=== PATIENT | female | born 1995 | race Two or more races ===

== ENCOUNTER 2020-07-26 17:35 | Emergency (ER) | payer OTHER ==
[~2020-07-26] VITALS: Ht 152.4 cm; Wt 63.6 kg
[2020-07-26 18:05] VITALS: BP 130/97
--- NOTE | 2020-07-26 18:12 | PHYS DOC ---
General Adult EDM: Chief Complaint: EARACHE/EAR PAIN HPI: HPI: ".. 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 ear pain with sore throat x 2 days. Patient has had recent travel to [place]. Patient has had 1 Covid vaccination and due for the final this next week. No history of specific ill contacts. Patient normally follows with [facility]. Patient no history of immunosuppression. Up-to-date with other vaccinations. Patient is normally healthy. 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 Review of Systems: Review of Systems: Constitutional: Denies fever or chills Eyes: Denies change in visual acuity HENT: Complains of nasal congestion, right ear pain and sore throat Respiratory: Denies cough or shortness of breath Cardiovascular: Denies chest pain or edema GI: Denies abdominal pain, nausea, vomiting, bloody stools or diarrhea : Denies dysuria Musculoskeletal: Denies back pain or joint pain Integument: Denies rash Neurologic: Denies headache, focal weakness or sensory changes Endocrine: Denies polyuria or polydipsia Lymphatic: Denies swollen glands Psychiatric: Denies depression or anxiety Family History: Family History: Noncontributory to presentation Current Medications: Current Meds: See nursing for home meds Allergies: Allergies: No known drug allergies Physical Exam: PE: Constitutional: Well developed, well nourished, no acute distress, non-toxic appearance. [] HENT: Normocephalic, atraumatic, bilateral external ears normal, oropharynx moist, mild injection of pharynx, no oral exudates, nose normal. Does have a small amount of fluid behind right TM. Eyes: PERRLA, EOMI, conjunctiva normal, no discharge. [] Neck: Normal range of motion, no tenderness, supple, no stridor. No adenopathy Cardiovascular:Heart rate regular rhythm, no murmur [] Lungs & Thorax: Bilateral breath sounds clear to auscultation [] Abdomen: Bowel sounds normal, soft, no tenderness, no masses, no pulsatile masses. [] Skin: Warm, dry, no erythema, no rash. [] Back: No tenderness, no CVA tenderness. [] Extremities: No tenderness, no cyanosis, no clubbing, ROM intact, no edema. [] Neurologic: Alert and oriented X 3, normal motor function, normal sensory function, no focal deficits noted. [] Psychologic: Affect anxious, , judgement normal, mood normal. [] EKG: EKG: [] Radiology/Procedures: Radiology/Procedures: [] Heart Score: C/O Chest Pain: N/A Risk Factors: Risk Factors: DM, Current or recent (<one month) smoker, HTN, HLP, family history of CAD, obesity. Risk Scores: Score 0 - 3: 2.5% MACE over next 6 weeks - Discharge Home Score 4 - 6: 20.3% MACE over next 6 weeks - Admit for Clinical Observation Score 7 - 10: 72.7% MACE over next 6 weeks - Early Invasive Strategies Course & Med Decision Making: Course & Med Decision Making Pertinent Labs and Imaging studies reviewed. (See chart for details) Patient gargle Listerine 4 times a day. Patient take Tylenol and ibuprofen as needed for discomfort. Patient take [id number] Benadryl 25 to 50 mg 4 times a day for nasal congestion and drainage and right TM fluid. Patient follow-up pending cultures. Suspect this is a viral pharyngitis. Patient follow-up with [facility]. Patient return if any concerns. Impression; 1. Viral pharyngitis [] Opal Disclaimer: Opal Disclaimer: This electronic medical record was generated, in whole or in part, using a voice recognition dictation system. Departure Departure: Referrals: PCP,NO (PCP) ARTI GUTIERREZ MD July 26, 2020 18:12
[2020-07-26] MEDS ORDERED: diphenhydrAMINE HCL 25 MG CAPSULE PO ONE (18:45)
[2020-07-26] MEDS ORDERED: predniSONE 10 MG TABLET PO ONE (18:45)
[2020-07-26] MEDS ORDERED: HYDROcodon/IBUPROFEN 7.5/200MG 1 TAB TABLET PO ONE (18:45)
== END 2020-07-26 20:28 | disposition home or self-care (01) ==
LOC: ER 17:35
DX: J02.8 Acute pharyngitis due to other specified organisms (principal); H92.01 Otalgia, right ear
CPT/HCPCS: 87070; 87880; 99284; J7512; Q0163

== ENCOUNTER 2021-01-11 03:37 | Emergency (ER) | payer OTHER ==
[~2021-01-11] VITALS: Ht 152.4 cm; Wt 65.6 kg
--- NOTE | 2021-01-11 03:46 | PHYS DOC ---
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 Pt. reports chest pain is central and some Lt shoulder radiation. . Pain does have pleurisy components. Patient denies previous cardiac problems. No history of DVTs or pulmonary embolisms. Is on control with IUD. No history of trauma. No history of fever or chills. No significant ill contacts. There is family history of early cardiac MA age 38 with father who is a diabetic. Patient normally follows with with Monty for care. Patient just returned from [facility] in [place] 2 weeks ago. No significant ill contacts while there. Does use IUD Mirena =5 yrs. . COVID vaccination x 2- Moderna.- July last vaccination. (ARTI GUTIERREZ MD) Review of Systems: Review of Systems: Constitutional: Denies fever or chills Eyes: Denies change in visual acuity HENT: Denies nasal congestion or sore throat Respiratory: Denies cough or shortness of breath Cardiovascular: Complains of chest pain GI: Denies abdominal pain, nausea, vomiting, bloody stools or diarrhea : Denies dysuria Musculoskeletal: Denies back pain or joint pain Integument: Denies rash Neurologic: Denies headache, focal weakness or sensory changes Endocrine: Denies polyuria or polydipsia Lymphatic: Denies swollen glands Psychiatric: Denies depression or anxiety (ARTI GUTIERREZ MD) Family History: Family History: Father diabetic and had MA at age 38 (ARTI GUTIERREZ MD) Current Medications: Current Meds: See nursing for home meds (ARTI GUTIERREZ MD) Allergies: Allergies: Allergies Coded Allergies Type Severity Reaction Last Updated Verified No Known Drug Allergies 07/26/20 No (ARTI GUTIERREZ MD) Physical Exam: PE: Constitutional: Well developed, well nourished, moderate acute distress, non- toxic appearance. [] HENT: Normocephalic, atraumatic, bilateral external ears normal, oropharynx moist, no oral exudates, nose normal. [] Eyes: PERRLA, EOMI, conjunctiva normal, no discharge. [] Neck: Normal range of motion, no tenderness, supple, no stridor. [] Cardiovascular:Heart rate regular rhythm, no murmur [] bedside monitor shows a sinus rhythm.- in 70's. Lungs & Thorax: Bilateral breath sounds equal apex on auscultation [] (scar on upper right breast- old cut on barbwire). Abdomen: Bowel sounds normal, soft, no tenderness, no masses, no pulsatile masses. [] Skin: Warm, dry, no erythema, no rash. [] Back: No tenderness, no CVA tenderness. [] Extremities: No tenderness, no cyanosis, no clubbing, ROM intact, no edema. No cording appreciated Neurologic: Alert and oriented X 3, normal motor function, normal sensory function, no focal deficits noted. [] Psychologic: Affect anxious, judgement normal, mood normal. [] (ARTI GUTIERREZ MD) EKG: EKG: [] (ARTI GUTIERREZ MD) EKG: EKG ordered and interpreted by myself at 0640 hrs. sinus bradycardia 46 bpm, unremarkable intervals, no axis deviation, no STEMI (QUINTEN LEE DO) Radiology/Procedures: Radiology/Procedures: My interpretation EKG shows sinus rhythm at 78 bpm. No acute morphology. Time of EKG is 348 hours [] (ARTI GUTIERREZ MD) Heart Score: C/O Chest Pain: Yes HEART Score for Chest Pain: HEART Score for Chest Pain Response (Comments) Value History Slighlty/Non-Suspicious 0 ECG Normal 0 Age < 45 0 Risk Factors 1 or 2 Risk Factors 1 Troponin < Normal Limit 0 Total 1 Risk Factors: Risk Factors: DM, Current or recent (<one month) smoker, HTN, HLP, family history of CAD, obesity. Risk Scores: Score 0 - 3: 2.5% MACE over next 6 weeks - Discharge Home Score 4 - 6: 20.3% MACE over next 6 weeks - Admit for Clinical Observation Score 7 - 10: 72.7% MACE over next 6 weeks - Early Invasive Strategies (ARTI GUTIERREZ MD) C/O Chest Pain: Yes HEART Score for Chest Pain: HEART Score for Chest Pain Response (Comments) Value History Slighlty/Non-Suspicious 0 ECG Normal 0 Age < 45 0 Risk Factors 1 or 2 Risk Factors 1 Troponin < Normal Limit 0 Total 1 (QUINTEN LEE DO) Course & Med Decision Making: Course & Med Decision Making Pertinent Labs and Imaging studies reviewed. (See chart for details) Encourage patient to follow-up with primary care. Encourage patient consider outpatient stress testing. Patient to take a daily aspirin. Patient take Tylenol and ibuprofen for discomfort. Push fluids. Push fruit juices. Return if any concerns. Endorsed to Dr. Lee at shift change he will make final disposition. With expected patient to be relatively low risk for acute cardiac event. Impression: 1. Pleuritic chest pain/ Chest wall pain 2. Mild hypokalemia potassium 3.1 3. Hx COVID vaccinationx2- Moderna [] (ARTI GUTIERREZ MD) Course & Med Decision Making Signout. I reviewed entirety of ER work-up and repeated certain aspects of history and physical exam with patient Reviewed heart score, patient asymptomatic at time of my evaluation. Little indication for further diagnostic work-up. 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 Close follow-up with outpatient budget consultant advised for continuity of care Strict return precautions discussed and understood by patient, all questions and concerns addressed prior to departure (QUINTEN LEE DO) Dragon Disclaimer: Dragon Disclaimer: This electronic medical record was generated, in whole or in part, using a voice recognition dictation system. (ARTI GUTIERREZ MD) Departure Departure: Impression: Primary Impression: Chest pain, unspecified Disposition: HOME / SELF CARE / HOMELESS Condition: STABLE Referrals: PCP,ROBERT (PCP) GRIS UP MD Additional Instructions: You were seen for chest pain. Your workup did not show any acute abnormalities today, but does not indicate that you do not have underlying cardiovascular disease. You do need to follow up with your primary doctor and potentially a budget consultant for further evaluation and treatment. You should return to the ED if you develop worsening chest pain, shortness of breath, fever, abnormal sweating, leg swelling, or any other new or concerning symptoms. Dragon Disclaimer This chart was dictated in whole or in part using Voice Recognition software in a busy, high-work load, and often noisy Emergency Department environment. It may contain unintended and wholly unrecognized errors or omissions. (ARTI GUTIERREZ MD) Dragon Disclaimer This chart was dictated in whole or in part using Voice Recognition software in a busy, high-work load, and often noisy Emergency Department environment. It may contain unintended and wholly unrecognized errors or omissions. (ARTI GUTIERREZ MD) ARTI GUTIERREZ MD Jan 11, 2021 03:46 QUINTEN LEE DO Jan 11, 2021 06:59
[2021-01-11] MEDS ORDERED: KETOROLAC 30 MG/ML VIAL. IVP ONE (04:15)
[2021-01-11] MEDS ORDERED: IV RINGERS SOLUTION,LACTATED 1,000 ML IV SCH (04:15)
[2021-01-11] MEDS ORDERED: ASPIRIN CHEWABLE 81 MG TABLET. PO ONE (04:15)
[2021-01-11 04:46] LABS: CALCIUM 8.8 mg/dL (8.5-10.1); CREATININE 0.5 mg/dL (0.6-1.0); GFR 152.9; POTASSIUM 3.1 mmol/L (3.5-5.1)
[2021-01-11 04:47] LABS: BASO % 0 % (0-3); EOS # 0.1 x10^3/uL (0.0-0.7); EOS % 1 % (0-3); HEMATOCRIT 39.8 % (36.0-47.0); HEMOGLOBIN 13.3 g/dL (12.0-15.5); LYMPH # 3.7 x10^3/uL (1.0-4.8); LYMPH % 35 % (24-48); MEAN CORPUSCULAR HEMOGLOBIN 30 pg (25-35); MEAN CORPUSCULAR HGB CONC 34 g/dL (31-37); MEAN CORPUSCULAR VOLUME 91 fL (79-100); MONO # 0.6 x10^3/uL (0.0-1.1); MONO % 5 % (0-9); NEUT # 6.1 x10^3uL (1.8-7.7); NEUT % 59 % (31-73); PLATELET COUNT 252 x10^3/uL (140-400); RED BLOOD COUNT 4.39 x10^6/uL (3.50-5.40); RED CELL DISTRIBUTION WIDTH 13.6 % (11.5-14.5); WHITE BLOOD COUNT 10.4 x10^3/uL (4.0-11.0)
[2021-01-11 04:58] LABS: ALBUMIN 3.6 g/dL (3.4-5.0); DIRECT BILIRUBIN 0.1 mg/dL (0.0-0.2); TOTAL BILIRUBIN 0.4 mg/dL (0.2-1.0); TOTAL PROTEIN 7.7 g/dL (6.4-8.2)
--- NOTE | 2021-01-11 04:59 | RAD ---
EXAMINATION: XR CHEST 2V CLINICAL HISTORY: Chest pain EXAM DATE/TIME: 01/11/2021 4:24 AM COMPARISON: None FINDINGS: Lines, Tubes, and Devices: None. Cardiomediastinal Silhouette: Within normal limits. Lungs and Pleura: No evidence of focal airspace consolidation or pleural effusion. Pulmonary vasculat ure unremarkable. Bones and Soft Tissues: No acute osseous abnormality. IMPRESSION: No evidence of acute cardiopulmonary abnormality. Electronically signed by: Diogo Trevino DO (01/11/2021 4:56 AM) RAFY
--- NOTE | 2021-01-11 06:22 | EKG ---
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
[2021-01-11 07:30] VITALS: BP 94/55
[2021-01-11 10:23] LABS: THYROID STIM HORMONE (TSH) 0.978 uIU/mL (0.358-3.740)
--- NOTE | 2021-01-11 16:11 | EKG ---
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
== END 2021-01-11 07:30 | disposition home or self-care (01) ==
LOC: ER 03:37
DX: R07.89 Other chest pain (principal); E87.6 Hypokalemia
CPT/HCPCS: 36415; 71046; 80048; 80061; 80076; 82550; 83690; 83735; 83880; 84443; 84484; 85025; 85379; 85610; 85730; 93005; 96361; 96374; 99285; J1885; J7120

== ENCOUNTER 2021-07-20 15:04 | Emergency (ER) | payer OTHER ==
--- NOTE | 2021-07-20 15:39 | RAD ---
XR CHEST 1V INDICATION: Reason: dizzy / Spl. Instructions: / History: . COMPARISON STUDY: None. FINDINGS: Lungs: Normal lung volume. No pulmonary mass or consolidation. The tracheobronchial tree and hilar st ructures are normal. Pleura: No pleural effusion or pneumothorax. Heart and Mediastinum: The cardiomediastinal silhouette is normal. The great vessels of the thorax ar e normal. Bones and Soft Tissues: The bones and soft tissues are within normal limits. IMPRESSION: No acute cardiopulmonary process. Electronically signed by: Tyler Hurt MD (07/20/2021 3:37 PM) [id number]
--- NOTE | 2021-07-20 15:42 | PHYS DOC ---
Past History Past Medical History: No Pertinent History Past Surgical History: No Surgical History Alcohol Use: None General Adult EDM: Chief Complaint: CHEST PAIN HPI: HPI: Patient is a 25-year-old female presents with chest pain and dizziness. Patient states that she feels lightheaded with standing. She has not passed out. She has not had any palpitations. The pain is a constant ache which does seem to be worse with deep breaths. No fever. No cough. She does feel somewhat short of breath with exertion. No history of asthma. Review of Systems: Review of Systems: Constitutional: Denies fever Eyes: Denies change in visual acuity or eye pain HENT: Denies sore throat Respiratory: Denies shortness of breath at rest Cardiovascular: Reports chest pain GI: Denies abd pain : Denies dysuria Musculoskeletal: Denies back or extremity injury Integument: Denies rash or skin lesions Neurologic: Denies headache, focal weakness or sensory changes All other systems were reviewed and found to be within normal limits, except as documented in this note. Current Medications: Current Meds: Current Medications Medications (Trade) Dose Ordered Sig/Abhay Start Time Stop Time Status Last Admin Dose Admin Ketorolac Tromethamine (Toradol 30mg Vial) 30 mg 1X ONCE 07/20/21 15:30 07/20/21 15:31 DC Meclizine HCl (Antivert) 25 mg 1X ONCE 07/20/21 15:30 07/20/21 15:31 DC Sodium Chloride 1,000 ml @ 1,000 mls/hr 1X ONCE 07/20/21 15:30 07/20/21 16:29 Allergies: Allergies: Allergies Coded Allergies Type Severity Reaction Last Updated Verified No Known Drug Allergies 07/26/20 No Physical Exam: PE: Constitutional: Well developed, well nourished, no acute distress, non-toxic appearance. HENT: Normocephalic, atraumatic, bilateral external ears normal, mucosa moist, nose normal. Eyes: EOMI, conjunctiva normal, no discharge. Neck: Normal range of motion, supple, no stridor, no meningeal signs. Cardiovascular: Regular rate and rhythm Lungs & Thorax: Bilateral breath sounds clear to auscultation Abdomen: Soft, no tenderness or obvious masses Skin: Warm, dry, no erythema, no rash. Extremities: No tenderness, no cyanosis, no clubbing, ROM intact, no edema. Neurologic: Alert and oriented, normal motor function, normal sensory function, no focal deficits noted. Psychologic: Affect normal, judgement normal, mood normal. EKG: EKG: [] Twelve-lead EKG demonstrates a sinus rhythm with rate of 72. NH, QRS and QT corrected intervals within normal limits. No ST segment elevation or depression. Radiology/Procedures: Radiology/Procedures: [] Impressions: Chest x-ray is negative for any acute process Heart Score: C/O Chest Pain: Yes HEART Score for Chest Pain: HEART Score for Chest Pain Response (Comments) Value History Slighlty/Non-Suspicious 0 ECG Normal 0 Age < 45 0 Risk Factors No Risk Factors 0 Troponin < Normal Limit 0 Total 0 Risk Factors: Risk Factors: DM, Current or recent (<one month) smoker, HTN, HLP, family history of CAD, obesity. Risk Scores: Score 0 - 3: 2.5% MACE over next 6 weeks - Discharge Home Score 4 - 6: 20.3% MACE over next 6 weeks - Admit for Clinical Observation Score 7 - 10: 72.7% MACE over next 6 weeks - Early Invasive Strategies Course & Med Decision Making: Course & Med Decision Making Pertinent Labs and Imaging studies reviewed. (See chart for details) [] This 25-year-old female with chest pain and dizziness. Her work-up was negative. She was given meclizine and Toradol with a liter of fluid and symptoms have resolved. We will give her prescriptions for the above medications, she is stable for discharge at this time. Dragon Disclaimer: Opal Disclaimer: This electronic medical record was generated, in whole or in part, using a voice recognition dictation system. Departure Departure: Impression: Primary Impression: Atypical chest pain Additional Impression: Dizziness Disposition: HOME / SELF CARE / HOMELESS Condition: STABLE Referrals: KEILY HUERTA BONE CHAR KILN OPERATOR-BC (PCP) Patient Instructions: Chest Pain (Nonspecific), Dizziness Scripts Meclizine Hcl (MECLIZINE HCL) 25 Mg Tablet 1 TAB PO TID for dizziness, #20 TAB Prov: HAO ALCALA MD 07/20/21 Ketorolac Tromethamine (KETOROLAC TROMETHAMINE) 10 Mg Tablet 1 TAB PO PRN Q6HRS for pain, #10 TAB Prov: HAO ALCALA MD 07/20/21 HAO ALCALA MD Jul 20, 2021 15:42
[2021-07-20] MEDS: MECLIZINE 12.5 MG TABLET. PO ONE (15:57)
[2021-07-20] MEDS: KETOROLAC 30 MG/ML VIAL. IVP ONE (15:58)
[2021-07-20] MEDS: IV NORMAL SALINE 1,000ML 1,000 ML IV ONE (15:58)
[2021-07-20 16:26] LABS: BASO % 0 % (0-3); EOS # 0.1 x10^3/uL (0.0-0.7); EOS % 1 % (0-3); HEMATOCRIT 38.9 % (36.0-47.0); HEMOGLOBIN 12.9 g/dL (12.0-15.5); LYMPH # 3.9 x10^3/uL (1.0-4.8); LYMPH % 41 % (24-48); MEAN CORPUSCULAR HEMOGLOBIN 31 pg (25-35); MEAN CORPUSCULAR HGB CONC 33 g/dL (31-37); MEAN CORPUSCULAR VOLUME 92 fL (79-100); MONO # 0.7 x10^3/uL (0.0-1.1); MONO % 7 % (0-9); NEUT # 4.8 x10^3uL (1.8-7.7); NEUT % 50 % (31-73); PLATELET COUNT 212 x10^3/uL (140-400); RED BLOOD COUNT 4.24 x10^6/uL (3.50-5.40); RED CELL DISTRIBUTION WIDTH 13.3 % (11.5-14.5); WHITE BLOOD COUNT 9.5 x10^3/uL (4.0-11.0)
[2021-07-20 16:39] LABS: CALCIUM 8.6 mg/dL (8.5-10.1); CREATININE 0.6 mg/dL (0.6-1.0); GFR 123.9; POTASSIUM 3.7 mmol/L (3.5-5.1)
[2021-07-20 16:46] LABS: ALBUMIN 3.5 g/dL (3.4-5.0); MAGNESIUM 1.8 mg/dL (1.8-2.4); TOTAL BILIRUBIN 0.2 mg/dL (0.2-1.0)
[2021-07-20 17:17] LABS: INFLUENZA A PATIENT NEGATIVE (NEGATIVE); INFLUENZA B PATIENT NEGATIVE (NEGATIVE)
[2021-07-20] MEDS ORDERED: MECL-75 PO (17:57)
[2021-07-20] MEDS ORDERED: KETO10TA PO (17:57)
[2021-07-20 18:36] LABS: U PREG PATIENT NEGATIVE (NEG)
[2021-07-20 18:59] LABS: CLARITY,URINE CLEAR; COLOR,URINE YELLOW; GLUCOSE,URINE NEG (NEG); NITRITE,URINE NEG (NEG); UROBILINOGEN,URINE 0.2 mg/dL (0.2 mg/dL)
[2021-07-20 19:00] LABS: BACTERIA,URINE MOD /HPF (0-FEW); SQUAMOUS EPITHELIAL CELL,UR MOD /LPF; WBC,URINE 20-40 /HPF (0-4)
--- NOTE | 2021-07-20 21:49 | EKG ---
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
== END 2021-07-20 18:08 | disposition home or self-care (01) ==
LOC: ER 15:04
DX: R07.89 Other chest pain (principal); R42 Dizziness and giddiness; R06.02 Shortness of breath; Z20.822 Contact with and (suspected) exposure to COVID-19
CPT/HCPCS: 36415; 71045; 80053; 81001; 81025; 83690; 83735; 84484; 85025; 87428; 93005; 96361; 96374; 99285; J1885; J7030